=== PATIENT | female | born 1985 | race Caucasian/White ===

== ENCOUNTER 2021-04-08 04:22 | Emergency (ER) | payer OTHER ==
[2021-04-08] MEDS ORDERED: fentaNYL 100 MCG/2 ML SDV IVPUSH PRN (04:37)
--- NOTE | 2021-04-08 04:39 | EDM.PDOC ---
<Santiago Oneal R - Last Filed: 04/08/21 06:52> ED HPI GENERAL MEDICAL PROBLEM - General Chief Complaint: Abdominal Pain Stated Complaint: ABD PAIN Time Seen by Provider: 04/08/21 04:32 Source of Information: Reports: Patient, EMS History Limitations: Reports: No Limitations - History of Present Illness INITIAL COMMENTS - FREE TEXT/NARRATIVE: Ngoc Lyn presents during covid pandemic from home with acute onset of severe bilateral lower quadrant abdominal pain beginning 3 hours ago which awoke her from sleep. Pain is constant, severe, worse with movement. Is decreased with Toradol IM by EMS. Patient denies any preceding symptoms. Per patient denies any fever, runny nose, sore throat, cough, change in taste or smell. Reports chronic loose stools. She is Covid vaccinated. Patient denies any headache, chest pain, shortness of breath or palpitations. She does have a history of anxiety for which she uses hydroxyzine. She has recently been in the sun presents with mild sunburn as well. This is not a complaint is only noted after physical donation/review of systems. Patient notes previous history ovarian cyst and remote . She thinks is unlikely she is . She has had no vaginal discharge or vaginal bleeding. She had no preceding symptoms prior to above and has had normal appetite. 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 She reports irregular menses and did have a period approximately 6 weeks ago as well..) Constitutional: Denies: Fever HEENT: Reports: No Symptoms Respiratory: Reports: No Symptoms Cardiovascular: Reports: No Symptoms GI/Abdominal: Reports: Abdominal Pain : Reports: Irregular Menses. Denies: Discharge, Dysuria, Flank Pain, Frequency, Hematuria, Urgency Musculoskeletal: Reports: No Symptoms Neurological: Reports: No Symptoms Psychiatric: Reports: Anxiety Hematologic/Lymphatic: Reports: No Symptoms Immunologic: Reports: No Symptoms (all other 10 neg, or per HPI) ED EXAM, GI/ABD - Physical Exam Exam: See Below Exam Limited By: No Limitations General Appearance: Alert, Mild Distress Eyes: Bilateral: Normal Appearance Ears: Hearing Grossly Normal Head: Normocephalic Neck: Normal Inspection, Full Range of Motion Respiratory/Chest: No Respiratory Distress, Lungs Clear, Normal Breath Sounds Cardiovascular: Normal Peripheral Pulses, No Edema, No JVD, No Murmur, No Rub, Tachycardia GI/Abdominal Exam: Normal Bowel Sounds, Soft, No Mass, Tender, Other (Tender in the bilateral lower quadrants. No right upper quadrant tenderness. ) Back Exam: Normal Inspection. No: CVA Tenderness (R), CVA Tenderness (L) Extremities: Normal Inspection. No: Pedal Edema Neurological: Alert, Oriented, Normal Cognition, Normal Gait, No Motor/Sensory Deficits, Other (Speech normal. intact memory no focal arm or leg weakness. normal tone. ) Psychiatric: Normal Affect, Normal Mood Skin Exam: Warm, Other (Superficial redness and sunburn that matches recent warm clothing. There is no blister formation, petechia, purpura or skin sloughing. This is primarily over the posterior shoulders and posterior arms.) Lymphatic: Other (no spleenomegally) Course - Vital Signs Text/Narrative:: history from EMS upon arrival and from patient. Temp normal per ED RN. HR 110. Ddx: ectopic , ovarian cyst rupture (doubt torsion as pain is bilateral lower quadrants), intraabdominal perforation, volvulus. low risk for vascular pathology. not suggestive of UTI, renal colic. atypical appendicitis or diverticulitis also less likely patient deferred on pain meds upon ED arrival. IVF bolus 0.9% NS and labs ordered. no covid symptoms. patient inquiring about having family/guest visitor police. await hcg, if neg, CT abd/pelvis. If hcg +, stat quantitative hcg and stat US pelvis/ovaries. 0516: wbc 19 k, hcg pending. if hcg, neg, proceed with CT scan abd/pelvis. 0526: hcg neg. bmp reviewed. CT abd/pelvis ordered w IV contrast 0530: patient up to bathroom for UA. she agrees with CT scan. 0639: patient recheck. she is up to bathroom to urinate. has ongoing lower abd pain on exam. awaiting CT scan. Signout to Dr. Aleks Downs for final disposition. 0653: Patient updated with results of CT scan including the pancreatic cystic lesion that require outpatient follow-up with your primary care physician and follow-up MRI. This is including the discharge instructions and patient voiced understanding. The CT shows that the visualized portion of the appendix is normal and there is evidence of a right ovarian cyst 2.5 cm potentially hemorrhagic. A pelvic ultrasound has been recommended and ordered. Departure - Departure Disposition: Home, Self-Care 01 Clinical Impression: Pancreatic cyst Abdominal pain Qualifiers: Abdominal location: generalized Qualified Code(s): R10.84 - Generalized abdominal pain Elevated WBC count Qualifiers: Leukocytosis type: bandemia Qualified Code(s): D72.825 - Bandemia - Discharge Information Instructions: Abdominal Pain, Adult, [id number] Referrals: PCP,None [Primary Care Provider] - Forms: ED Department Discharge Additional Instructions: During your visit today for acute abdominal pain, incidental pancreatic cystic lesion was noted. You will require follow-up MRI study with your primary care physician to further evaluate this. Please call your primary care doctor tomorrow to arrange follow-up and review the final results of the CT scan which should be completed tomorrow on 04/09/2021. Take Cyrus as needed for pain relief today. See your personal provider lance. <Nain Downs - Last Filed: 04/08/21 09:53> ED HPI GENERAL MEDICAL PROBLEM - History of Present Illness INITIAL COMMENTS - FREE TEXT/NARRATIVE: Denies sex outside of her marriage and is "100% confident" she did not contract any sexually transmitted dz from her . Course - Vital Signs Last Recorded V/S: Last Vital Signs Temp 37.6 C 04/08/21 07:44 Pulse 120 H 04/08/21 07:43 Resp 14 04/08/21 07:43 BP 148/83 H 04/08/21 07:43 Pulse Ox 94 L 04/08/21 07:43 - Orders/Labs/Meds Orders: Active Orders 24 hr Category Date Time Status Pelvis Non OB Comp [US] Urgent Exams 04/08/21 06:58 Taken Transvaginal Non OB [US] Stat Exams 04/08/21 09:37 Taken VL Duplex Abd Pel Ret Ltd [US] Stat Exams 04/08/21 09:37 Taken Sodium Chloride 0.9% [Normal Saline] 1,000 ml Med 04/08/21 04:45 Active IV ASDIRECTED Sodium Chloride 0.9% [Normal Saline] 85 ml Med 04/08/21 05:45 Active IV ASDIRECTED fentaNYL [Sublimaze] Med 04/08/21 04:37 Active 50 mcg IVPUSH Q6H PRN Medication Orders Fentanyl (Fentanyl 100 Mcg/2 Ml Sdv) 50 mcg IVPUSH Q6H PRN PRN Reason: Pain Sodium Chloride (Normal Saline) 1,000 mls @ 999 mls/hr IV ASDIRECTED SAMUEL Last Admin: 04/08/21 04:44 Dose: 999 mls/hr Documented by: JACK Sodium Chloride (Normal Saline) 85 mls @ 3.5 mls/sec IV ASDIRECTED SAMUEL Last Admin: 04/08/21 05:46 Dose: 3.5 mls/sec Documented by: PATRICIA Labs: Laboratory Tests 04/08/21 04/08/21 04/08/21 Range/Units 05:00 05:00 05:00 WBC 20.8 H (4.5-11.0) K/uL RBC 4.76 (3.30-5.50) M/uL Hgb 14.7 (12.0-15.0) g/dL Hct 41.3 (36.0-48.0) % MCV 87 (80-98) fL MCH 31 (27-31) pg MCHC 36 (32-36) % Plt Count 236 (150-400) K/uL Neut % (Auto) 80.4 H (36-66) % Lymph % (Auto) 12.3 L (24-44) % [place] % (Auto) 6.2 H (2-6) % Eos % (Auto) 1.0 L (2-4) % Baso % (Auto) 0.1 (0-1) % Sodium 137 L (140-148) mmol/L Potassium 3.4 L (3.6-5.2) mmol/L Chloride 104 (100-108) mmol/L Carbon Dioxide 25 (21-32) mmol/L Anion Gap 11.4 (5.0-14.0) mmol/L BUN 10 (7-18) mg/dL Creatinine 0.8 (0.6-1.0) mg/dL Est Cr Clr Drug Dosing 81.97 mL/min Estimated GFR (MDRD) > 60 (>60) Glucose 114 H (74-106) mg/dL Calcium 8.3 L (8.5-10.1) mg/dL C-Reactive Protein (0.0-0.3) mg/dL HCG, Qual Negative Urine Color (YELLOW) Urine Appearance (CLEAR) Urine pH (5.0-8.0) Ur Specific [place] (1.008-1.030) Urine Protein (NEGATIVE) mg/dL Urine Glucose (UA) (NEGATIVE) mg/dL Urine Ketones (NEGATIVE) mg/dL Urine Occult Blood (NEGATIVE) Urine Nitrite (NEGATIVE) Urine Bilirubin (NEGATIVE) Urine Urobilinogen (0.2-1.0) EU/dL Ur Leukocyte Esterase (NEGATIVE) Urine RBC (0-5) Urine WBC (0-5) Ur Epithelial Cells Amorphous Sediment Urine Bacteria Urine Mucus 04/08/21 04/08/21 Range/Units 05:41 07:56 WBC (4.5-11.0) K/uL RBC (3.30-5.50) M/uL Hgb (12.0-15.0) g/dL Hct (36.0-48.0) % MCV (80-98) fL MCH (27-31) pg MCHC (32-36) % Plt Count (150-400) K/uL Neut % (Auto) (36-66) % Lymph % (Auto) (24-44) % [place] % (Auto) (2-6) % Eos % (Auto) (2-4) % Baso % (Auto) (0-1) % Sodium (140-148) mmol/L Potassium (3.6-5.2) mmol/L Chloride (100-108) mmol/L Carbon Dioxide (21-32) mmol/L Anion Gap (5.0-14.0) mmol/L BUN (7-18) mg/dL Creatinine (0.6-1.0) mg/dL Est Cr Clr Drug Dosing mL/min Estimated GFR (MDRD) (>60) Glucose (74-106) mg/dL Calcium (8.5-10.1) mg/dL C-Reactive Protein 0.52 H (0.0-0.3) mg/dL HCG, Qual Urine Color Yellow (YELLOW) Urine Appearance Slightly cloudy A (CLEAR) Urine pH 7.0 (5.0-8.0) Ur Specific [place] 1.020 (1.008-1.030) Urine Protein Negative (NEGATIVE) mg/dL Urine Glucose (UA) Negative (NEGATIVE) mg/dL Urine Ketones Negative (NEGATIVE) mg/dL Urine Occult Blood Negative (NEGATIVE) Urine Nitrite Negative (NEGATIVE) Urine Bilirubin Negative (NEGATIVE) Urine Urobilinogen 0.2 (0.2-1.0) EU/dL Ur Leukocyte Esterase Trace H (NEGATIVE) Urine RBC 0-5 (0-5) Urine WBC 5-10 H (0-5) Ur Epithelial Cells Moderate Amorphous Sediment Not seen Urine Bacteria Moderate Urine Mucus Moderate Meds: Medications Generic Name Dose Route Start Last Admin Trade Name Freq PRN Reason Stop Dose Admin Fentanyl 50 mcg 04/08/21 04:37 Fentanyl 100 Mcg/2 Ml Sdv IVPUSH Q6H PRN Pain Sodium Chloride 1,000 mls @ 999 mls/hr 04/08/21 04:45 04/08/21 04:44 Normal Saline IV 999 mls/hr ASDIRECTED SAMUEL Administration Sodium Chloride 85 mls @ 3.5 mls/sec 04/08/21 05:45 04/08/21 05:46 Normal Saline IV 3.5 mls/sec ASDIRECTED SAMUEL Administration Discontinued Medications Generic Name Dose Route Start Last Admin Trade Name Freq PRN Reason Stop Dose Admin Iopamidol 150 ml 04/08/21 05:31 04/08/21 05:46 Iopamidol 612 Mg/Ml 500 Ml Multipack Bottle IV 04/08/21 05:32 150 ml ONETIME ONE Administration Sodium Chloride 10 ml 04/08/21 05:31 04/08/21 05:46 Sodium Chloride 0.9% 10 Ml Syringe FLUSH 04/08/21 05:32 10 ml ONETIME ONE Administration - Radiology Interpretation Free Text/Narrative:: CT abd/pelvis with IV contrast- IMPRESSION: 1. Question 2.5 cm hemorrhagic right ovarian cyst. Considers further evaluation with pelvic ultrasound. 2. Visualized portion of the appendix grossly normal. 3. 1.9 x 1.5 x 1.3 cm pancreatic body cystic lesion. Further evaluation with MRI recommended. 4. Fatty liver. 5. Small amount of free fluid in the pelvis, presumably physiologic. Please note that all CT scans at this facility use dose modulation, iterative reconstruction, and/or weight-based dosing when appropriate to reduce radiation dose to as low as reasonably achievable. Dictated by Yovany Wall MD @ 04/08/2021 6:44:07 AM pelvis US- no ovarian cyst noted. (preliminary result) Departure - Departure Time of Disposition: 10:00 Condition: Fair - Discharge Information *PRESCRIPTION DRUG MONITORING PROGRAM REVIEWED*: Not Applicable *COPY OF PRESCRIPTION DRUG MONITORING REPORT IN PATIENT CHASTITY: Not Applicable Sepsis Event Note (ED) - Focused Exam Vital Signs: Vital Signs Temp Pulse Resp BP BP Pulse Ox 04/08/21 07:44 37.6 C 04/08/21 07:43 120 H 14 148/83 H 94 L 04/08/21 05:41 37.5 C 104 H 18 136/81 98 04/08/21 04:39 37.7 C 120 H 22 H 141/92 H 97 04/08/21 04:27 37.7 C 120 H 22 H 141/92 H 97 - My Orders Last 24 Hours: My Active Orders 04/08/21 09:37 Transvaginal Non OB [US] Stat VL Duplex Abd Pel Ret Ltd [US] Stat - Assessment/Plan Last 24 Hours: My Active Orders 04/08/21 09:37 Transvaginal Non OB [US] Stat VL Duplex Abd Pel Ret Ltd [US] Stat
[2021-04-08] MEDS ORDERED: Sodium Chloride 0.9% 1,000 ML IV SCH (04:45)
[2021-04-08] MEDS ORDERED: Iopamidol 612 MG/ML 500 ML Multipack Bottle IV ONE (05:31)
[2021-04-08] MEDS ORDERED: Sodium Chloride 0.9% 10 ML Syringe FLUSH ONE (05:31)
--- NOTE | 2021-04-08 06:45 | CRLCT ---
For Patients: As a result of the Century Cures Act, medical imaging exams and procedure reports are released immediately into your electronic medical record. You may view this report before your referring provider. If you have questions, please contact your health care provider. INDICATION: Acute lower abdominal pain. History of ovarian cyst. TECHNIQUE: Volumetric helical scanning of the abdomen and pelvis was performed with 100 cc of Isovue 300 contrast material IV. Coronal and sagittal reconstructions were obtained. COMPARISON: None. FINDINGS: There is no evidence of bowel obstruction or inflammation. The visualized portion of the appendix appears normal. There is a moderate amount of stool in the colon. There is question of a 2.5 cm hemorrhagic right ovarian cyst. The left ovary and uterus are unremarkable. A small amount of free fluid is noted in the cul-de-sac. Fatty change is demonstrated in the liver. The liver is normal in size and shape. The bile ducts, spleen and adrenal glands are unremarkable. The kidneys are negative except for several benign-appearing cysts. No lymphadenopathy is demonstrated. A 1.9 x 1.5 x 1.3 cm pancreatic body cystic lesion is demonstrated. The pancreas is otherwise unremarkable. The pancreatic duct is normal in caliber. The lung bases are clear, and the heart size is normal. IMPRESSION: 1. Question 2.5 cm hemorrhagic right ovarian cyst. Considers further evaluation with pelvic ultrasound. 2. Visualized portion of the appendix grossly normal. 3. 1.9 x 1.5 x 1.3 cm pancreatic body cystic lesion. Further evaluation with MRI recommended. 4. Fatty liver. 5. Small amount of free fluid in the pelvis, presumably physiologic. Please note that all CT scans at this facility use dose modulation, iterative reconstruction, and/or weight-based dosing when appropriate to reduce radiation dose to as low as reasonably achievable. Dictated by Yovany Wall MD @ 04/08/2021 6:44:07 AM (Electronically Signed)
--- NOTE | 2021-04-09 14:37 | US ---
VL Duplex Abd Pel Ret Ltd, Pelvis Non OB Comp, Transvaginal Non OB CLINICAL HISTORY: Acute abdominal pelvic pain FINDINGS: Real-time transabdominal and transvaginal and Doppler images were obtained through the pelvis. Uterus measures 7.0 x 4.5 x 3.7 cm. It has some normal myometrial contour Endometrium measures 4 mm. Right ovary measures 2.9 x 1.9 x 2.0 cm Left ovary measures 2.7 x 2.0 x 1.6 cm. There is normal blood flow in both ovaries. No free fluid seen IMPRESSION: Essentially negative pelvic ultrasound
[2021-04-11 10:15] LABS: CHLAMYDIA TRACHOMATIS, NAA Negative (Negative); NEISSERIA GONORRHOEAE, NAA Negative (Negative)
== END 2021-04-08 10:34 | disposition home or self-care (01) ==
LOC: JP.ED 04:22
DX: K86.2 Cyst of pancreas (principal); D72.825 Bandemia; Z88.8 Allergy status to other drugs, medicaments and biological substances
CPT/HCPCS: 36415; 74177; 76830; 76856; 80048; 81001; 84703; 85025; 86140; 87491; 87591; 93976; 99284; J7030; Q9967